=== PATIENT | female | born 1980 | race Caucasian/White ===

== ENCOUNTER 2016-11-08 14:46 | Outpatient (CLI) | payer MEDICAID ==
[2016-11-08 18:59] LABS: BASOPHILS # (AUTO) 0.1 10^3/uL (0.0-0.1); BASOPHILS % (AUTO) 1.8 %; EOSINOPHILS # (AUTO) 0.1 10^3/uL (0.0-0.7); EOSINOPHILS % (AUTO) 2.3 %; HCT - HEMATOCRIT 39.3 % (37.0-47.0); HGB - HEMOGLOBIN 13.2 g/dL (12.0-16.0); IMMATURE RETIC FRACTION 0.32; LYMPHOCYTES # (AUTO) 1.6 10^3/uL (1.5-3.5); LYMPHOCYTES % (AUTO) 39.5 %; MEAN CORPUSCULAR HEMOGLOBIN 28.6 pg (27.0-31.0); MEAN CORPUSCULAR HGB CONC 33.6 g/dL (32.0-36.0); MEAN CORPUSCULAR VOLUME 85.1 fL (81.0-99.0); MEAN PLATELET VOLUME 9.1 fL (7.9-10.8); MONOCYTES # (AUTO) 0.4 10^3/uL (0.0-1.0); MONOCYTES % (AUTO) 10.8 %; NEUTROPHILS # (AUTO) 1.9 10^3/uL (1.5-6.6); NEUTROPHILS % (AUTO) 45.6 %; RED BLOOD COUNT 4.62 10^6/uL (4.20-5.40); RED CELL DISTRIBUTION WIDTH 13.2 % (12.0-15.0); UNCORRECTED WHITE BLOOD COUNT 4.1 x10^3/uL; WHITE BLOOD COUNT 4.1 x10^3/uL (4.8-10.8)
[2016-11-08 19:17] LABS: ALBUMIN/GLOBULIN RATIO 1.6 (1.0-2.2); BILIRUBIN,TOTAL 0.8 mg/dL (0.2-1.0); BUN - BLOOD UREA NITROGEN 12 mg/dL (6-20); CALCIUM 9.3 mg/dL (8.5-10.3); CARBON DIOXIDE - CO2 27 mmol/L (21-32); CHLORIDE 104 mmol/L (101-111); CHOL/HDL RATIO 3.3 (<4.4); CHOLESTEROL 189 mg/dL; CREATININE 0.7 mg/dL (0.4-1.0); GFR - MDRD 96 (>89); GLUCOSE 82 mg/dL (70-100); HDL CHOLESTEROL 57 mg/dL; IRON 65 ug/dL (28-170); LDL/HDL RATIO 2.1 (<4.4); POTASSIUM 3.3 mmol/L (3.5-5.0); SODIUM 138 mmol/L (135-145); TOTAL IRON BINDING CAPACITY 434 ug/dL (250-450); TOTAL PROTEIN 7.4 g/dL (6.7-8.2); TRANSFERRIN 310 mg/dL (192-382); TRIGLYCERIDES 52 mg/dL; VLDL CHOLESTEROL 10 mg/dL
[2016-11-08 19:31] LABS: FERRITIN 11.3 ng/mL (11.0-306.8)
[2016-11-08 19:44] LABS: THYROID STIMULATING HORMONE 1.67 uIU/mL (0.34-5.60)
== END 2016-11-08 14:47 | disposition home or self-care (01) ==
LOC: LAB.N 14:46
PROVIDERS: ATTEND Physician Assistant
DX: R53.83 Other fatigue (principal)
CPT/HCPCS: 36415; 80053; 80061; 82607; 82728; 83540; 84443; 84466; 85025; 85044

== ENCOUNTER 2017-02-06 10:46 | Outpatient (CLI) | payer MEDICAID ==
--- NOTE | 2017-02-06 12:13 | XRAY Report ---
THREE-VIEW THORACIC SPINE: 02/06/2017 CLINICAL INDICATION: Back pain. FINDINGS: AP, lateral, swimmer's views of the thoracic spine demonstrate no evidence of fracture. N o paraspinal hematoma is present. The disk spaces are preserved. IMPRESSION: NORMAL THORACIC SPINE. JOB #: [id number] EXT JOB #:[id number]
--- NOTE | 2017-02-06 15:20 | XRAY Report ---
THREE-VIEW LUMBAR SPINE: 02/06/2017 CLINICAL INDICATION: Back pain. FINDINGS: AP, lateral, coned-down views of the lumbar spine demonstrate normal height and alignment of the vertebral bodies. The disk spaces are preserved. The bowel gas pattern is normal. IMPRESSION: NORMAL LUMBAR SPINE. JOB #: [id number] EXT JOB #:[id number]
== END 2017-02-06 10:47 | disposition home or self-care (01) ==
LOC: DI 10:46
PROVIDERS: ATTEND Nurse Practitioner Gerontology
DX: M54.5 Low back pain (principal)
CPT/HCPCS: 72072; 72100

== ENCOUNTER 2017-03-15 09:37 | Emergency (ER) | payer MEDICAID ==
[2017-03-15 10:06] LABS: BILIRUBIN,URINE NEGATIVE (NEGATIVE); PH,URINE 6.5 PH (5.0-7.5)
[2017-03-15 10:08] LABS: HCG UR QUAL NEGATIVE; UA w/ MICROSCOPIC CHARGE YES
[2017-03-15 10:41] LABS: UR CULTURE IF IND NOT INDICATED; WBC,URINE 0-3 /HPF (0-5)
[2017-03-15 11:37] VITALS: BP 111/76
--- NOTE | 2017-03-15 11:37 | ED Physician Documentation ---
History of Present Illness - Stated complaint Stated Complaint: FEMALE /??? - Chief complaint Chief Complaint: General - History obtained from History obtained from: Patient - Additonal information Additional information: The patient is a spontaneous Ab1 37-year-old female who presents with concern about the possibility of . 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 She has taken 2 home tests which which she states were "invalid." She denies abdominal pain, current vaginal bleeding, fever, dysuria, nausea, or vomiting. She is status post bilateral tubal ligation. 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 - Present Medications Home Medications: Ambulatory Orders Medication Instructions Recorded Confirmed No Known Home Medications [No 03/15/17 03/15/17 Known Home Medications] - Allergies Allergies/Adverse Reactions: Allergies Allergy/AdvReac Type Severity Reaction Status Date / Time cephalexin Allergy Rash Verified 03/15/17 09:44 - Social History Does the pt smoke?: No Smoking Status: Never smoker Does the pt drink ETOH?: No Does the pt have substance abuse?: No PD ED PE NORMAL - Vitals Vital signs reviewed: Yes (normal) - General General: Alert and oriented X 3, Well developed/nourished - HEENT HEENT: Atraumatic - Cardiac Cardiac: RRR - Respiratory Respiratory: No respiratory distress - Abdomen Abdomen: Soft, Non tender - Derm Derm: No rash - Extremities Extremities: No edema, No calf tenderness / cord - Neuro Neuro: Alert and oriented X 3, No motor deficit, Normal speech Results - Vitals Vitals: Oxygen O2 Source Room air - Labs Labs: Laboratory Tests 03/15/17 09:50 Urine Color YELLOW Urine Clarity HAZY Urine pH 6.5 Ur Specific [place] 1.015 Urine Protein NEGATIVE Urine Glucose (UA) NEGATIVE Urine Ketones NEGATIVE Urine Occult Blood NEGATIVE Urine Nitrite NEGATIVE Urine Bilirubin NEGATIVE Urine Urobilinogen 0.2 (NORMAL) Ur Leukocyte Esterase NEGATIVE Urine RBC 0-5 Urine WBC 0-3 Ur Squamous Epith Cells MANY Squamous H Amorphous Sediment Few Urine Bacteria Many H Ur Microscopic Review INDICATED Urine Culture Comments NOT INDICATED Urine HCG, Qual NEGATIVE PD MEDICAL DECISION MAKING - ED course Complexity details: reviewed results, considered differential, d/w patient ED course: The patient presents for test. Medical screening exam was performed. Urine test is negative. I discussed with her outpatient follow-up, as well as potentially worrisome signs or symptoms that should prompt reevaluation in the emergency department. Departure - Departure Disposition: 01 Home, Self Care Clinical Impression: test negative Condition: Stable Instructions: ED Screening Exam Medical Nonurgent Follow-Up: Nirali Botello MD [Provider Admit Priv/Credential] - Comments: Your test today was negative. Follow up with your primary physician for further concerns. Return to the interim if you develop worsening symptoms. Discharge Date/Time: 03/15/17 11:42
== END 2017-03-15 11:42 | disposition home or self-care (01) ==
LOC: ED 09:37
DX: Z32.02 Encounter for pregnancy test, result negative (principal); Z98.51 Tubal ligation status
CPT/HCPCS: 81001; 81003; 81025; 87086; 99283

== ENCOUNTER 2017-05-01 12:05 | Emergency (ER) | payer MEDICAID ==
[2017-05-01 12:37] LABS: BILIRUBIN,URINE NEGATIVE (NEGATIVE)
[2017-05-01 12:42] LABS: HCG UR QUAL POSITIVE; UA w/ MICROSCOPIC CHARGE YES
[2017-05-01 12:56] LABS: UR CULTURE IF IND NOT INDICATED; WBC,URINE 0-3 /HPF (0-5)
[2017-05-01 13:03] LABS: BASOPHILS % (AUTO) 0.6 %; EOSINOPHILS # (AUTO) 0.3 10^3/uL (0.0-0.7); EOSINOPHILS % (AUTO) 6.3 %; HGB - HEMOGLOBIN 14.3 g/dL (12.0-16.0); LYMPHOCYTES # (AUTO) 1.5 10^3/uL (1.5-3.5); LYMPHOCYTES % (AUTO) 35.7 %; MEAN CORPUSCULAR HEMOGLOBIN 29.3 pg (27.0-31.0); MEAN CORPUSCULAR HGB CONC 34.7 g/dL (32.0-36.0); MEAN CORPUSCULAR VOLUME 84.2 fL (81.0-99.0); MEAN PLATELET VOLUME 8.3 fL (7.9-10.8); MONOCYTES # (AUTO) 0.4 10^3/uL (0.0-1.0); MONOCYTES % (AUTO) 9.6 %; NEUTROPHILS % (AUTO) 47.8 %; RED BLOOD COUNT 4.87 10^6/uL (4.20-5.40); RED CELL DISTRIBUTION WIDTH 13.2 % (12.0-15.0); UNCORRECTED WHITE BLOOD COUNT 4.3 x10^3/uL; WHITE BLOOD COUNT 4.3 x10^3/uL (4.8-10.8)
[2017-05-01 13:17] LABS: ALBUMIN/GLOBULIN RATIO 1.4 (1.0-2.2); CALCIUM 9.4 mg/dL (8.5-10.3); CREATININE 0.7 mg/dL (0.4-1.0); POTASSIUM 3.5 mmol/L (3.5-5.0); TOTAL PROTEIN 7.8 g/dL (6.7-8.2)
[2017-05-01 14:00] LABS: INR 1.1 (0.8-1.2)
--- NOTE | 2017-05-01 14:32 | ED Physician Documentation ---
PD HPI FEMALE - Stated complaint Stated Complaint: HEAVY MENSES - Chief complaint Chief Complaint: Abd Pain - History obtained from History obtained from: Patient - History of Present Illness Timing - onset: Yesterday Timing - details: Gradual onset, Still present Associated symptoms: Vaginal bleeding Similar symptoms before: Has not had sx before Recently seen: Not recently seen - Additional information Additional information: Patient is a 37 year old female with no significant past medical history who is presenting to the emergency department for vaginal bleeding. patient stated that the bleeding started yesterday and she has soaked through three pairs of pants. patient state that she is sexually active but she had a tubal ligation. Review of Systems Constitutional: denies: Fever, Chills Eyes: denies: Decreased vision, Photophobia Ears: reports: Reviewed and negative Nose: denies: Epistaxis Throat: reports: Reviewed and negative Cardiac: denies: Chest pain / pressure, Palpitations Respiratory: reports: Reviewed and negative GI: denies: Abdominal Pain, Nausea, Vomiting : reports: Vaginal bleeding. 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 - Present Medications Home Medications: Ambulatory Orders Medication Instructions Recorded Confirmed No Known Home Medications [No 03/15/17 05/01/17 Known Home Medications] - Allergies Allergies/Adverse Reactions: Allergies Allergy/AdvReac Type Severity Reaction Status Date / Time cephalexin Allergy Rash Verified 05/01/17 12:15 - Social History Does the pt smoke?: No Smoking Status: Never smoker Does the pt drink ETOH?: No Does the pt have substance abuse?: No - Immunizations Immunizations are current?: Yes PD ED PE NORMAL - Vitals Vital signs reviewed: Yes - General General: Alert and oriented X 3, No acute distress, Well developed/nourished - HEENT HEENT: Atraumatic, PERRL, Moist mucous membranes - Neck Neck: Supple, no meningeal sign - Cardiac Cardiac: RRR, No murmur - Respiratory Respiratory: No respiratory distress, Clear bilaterally - Abdomen Abdomen: Soft, Non tender, Non distended - Derm Derm: Normal color, Warm and dry - Extremities Extremities: No deformity, Normal ROM s pain - Neuro Neuro: Alert and oriented X 3, No motor deficit, No sensory deficit, Normal speech - Psych Psych: Normal mood PD ED PE EXPANDED - Female Female : Vaginal Bleeding (moderate vaginal bleeding) Results - Vitals Vitals: Vital Signs - 24 hr 05/01/17 05/01/17 12:10 14:38 Temperature 37.2 C Heart Rate 84 79 Respiratory 18 17 Rate Blood Pressure 111/78 131/73 H O2 Saturation 99 99 Oxygen O2 Source Nasal cannula - Labs Labs: Laboratory Tests 05/01/17 05/01/17 05/01/17 12:20 12:55 12:55 WBC 4.3 L RBC 4.87 Hgb 14.3 Hct 41.0 MCV 84.2 MCH 29.3 MCHC 34.7 RDW 13.2 Plt Count 198 MPV 8.3 Neut # 2.0 Lymph # 1.5 Benzie # 0.4 Eos # 0.3 Baso # 0.0 Absolute Nucleated RBC 0.00 Nucleated RBC % 0.0 PT 12.0 INR 1.1 APTT 27.0 Sodium Potassium Chloride Carbon Dioxide Anion Gap BUN Creatinine Estimated GFR (MDRD) Glucose Calcium Total Bilirubin AST ALT Alkaline Phosphatase Total Protein Albumin Globulin Albumin/Globulin Ratio Lipase HCG, Quant Urine Color RED/BLOODY Urine Clarity HAZY Urine pH 7.0 Ur Specific [place] 1.015 Urine Protein NEGATIVE Urine Glucose (UA) NEGATIVE Urine Ketones NEGATIVE Urine Occult Blood LARGE H Urine Nitrite NEGATIVE Urine Bilirubin NEGATIVE Urine Urobilinogen 0.2 (NORMAL) Ur Leukocyte Esterase NEGATIVE Urine RBC TNTC H Urine WBC 0-3 Ur Squamous Epith Cells MOD Squamous H Urine Bacteria Rare Ur Microscopic Review INDICATED Urine Culture Comments NOT INDICATED Urine HCG, Qual POSITIVE 05/01/17 05/01/17 12:55 12:55 WBC RBC Hgb Hct MCV MCH MCHC RDW Plt Count MPV Neut # Lymph # Benzie # Eos # Baso # Absolute Nucleated RBC Nucleated RBC % PT INR APTT Sodium 137 Potassium 3.5 Chloride 102 Carbon Dioxide 28 Anion Gap 7.0 BUN 9 Creatinine 0.7 Estimated GFR (MDRD) 95 Glucose 89 Calcium 9.4 Total Bilirubin 1.0 AST 24 ALT 18 Alkaline Phosphatase 41 L Total Protein 7.8 Albumin 4.5 Globulin 3.3 Albumin/Globulin Ratio 1.4 Lipase 16 L HCG, Quant < 0.60 Urine Color Urine Clarity Urine pH Ur Specific [place] Urine Protein Urine Glucose (UA) Urine Ketones Urine Occult Blood Urine Nitrite Urine Bilirubin Urine Urobilinogen Ur Leukocyte Esterase Urine RBC Urine WBC Ur Squamous Epith Cells Urine Bacteria Ur Microscopic Review Urine Culture Comments Urine HCG, Qual - Rads (name of study) pelvic ultrasound Radiology: Final report received (no intrauterine or extrauterine ) PD MEDICAL DECISION MAKING - ED course Complexity details: reviewed old records, reviewed results, re-evaluated patient , considered differential, d/w patient ED course: Patient was seen and examined at bedside. Labs were drawn and urine was collected. Patient's urinalysis was positive for urine so ultrasound was ordered, as well as additional blood work. Patient's beta quant was negative and ultrasound was within normal limits. Patient was made aware of her findings and was stable for discharge with outpatient follow up. Departure - Departure Disposition: 01 Home, Self Care Clinical Impression: Dysfunctional uterine bleeding Condition: Good Instructions: ED Bleed Irregular Vaginal Follow-Up: Tuyet Jones DO [Provider Admit Priv/Credential] - Comments: Your diagnostics today were within normal limits. Your urine test was positive but the blood test was negative and the ultrasound was within normal limits. You may have had a miscarriage or it was a false positive test. You should follow up with Dr. Jones's office for further evaluation if the symptoms persist. You may return to the emergency department at any time for new, worsening or uncontrollable symptoms. Discharge Date/Time: 05/01/17 14:43
[2017-05-01 14:44] VITALS: BP 131/73
--- NOTE | 2017-05-03 12:12 | Ultrasound Report ---
DATE OF SERVICE: 05/01/2017 FIRST TRIMESTER OB ULTRASOUND WITH TRANSVAGINAL: 05/01/2017 CLINICAL INDICATION: , vaginal bleeding. History of tubal ligation. TECHNIQUE: Transabdominal pelvic ultrasound performed for global evaluation. Transvaginal pelvic ul trasound performed for detailed evaluation. Real-time scanning performed and static images obtained. FINDINGS: The uterus is anteverted, measuring 8.3 x 5.0 x 5.5 cm. The endometrium measures 5 mm. N o intrauterine or extrauterine gestation is identified. The ovaries are normal, with the right measuri ng 3.6 x 2.8 x 1.4 cm, and the left measuring 3.1 x 2.2 x 1.4 cm. A small amount of free fluid is noted in th e cul-de-sac, likely physiologic in a patient of this age. IMPRESSION: Trace free fluid. Otherwise, normal pelvic ultrasound. No intrauterine or extrauterine gestation is identified. Recommend followup serial quantitative beta hCG. TD: 05/01/2017 20:41
== END 2017-05-01 14:43 | disposition home or self-care (01) ==
LOC: ED 12:05
DX: N93.8 Other specified abnormal uterine and vaginal bleeding (principal)
CPT/HCPCS: 36415; 76801; 76817; 80053; 81001; 81003; 81025; 83690; 84702; 85025; 85610; 85730; 86900; 86901; 87086; 99283

== ENCOUNTER 2017-05-15 15:16 | Outpatient (CLI) | payer MEDICAID | END 2017-05-15 15:17 | disposition home or self-care (01) | LOC: LAB 15:16 | PROVIDERS: ATTEND Obstetrics & Gynecology | DX: Z32.00 Encounter for pregnancy test, result unknown (principal) | CPT/HCPCS: 84702 ==

== ENCOUNTER 2017-10-25 09:43 | Emergency (ER) | payer MEDICAID ==
--- NOTE | 2017-10-25 11:51 | XRAY Report ---
Procedure Date: 10/25/2017 Accession Number: [id number] / [id number] Procedure: XR - Chest 2 View X-Ray CPT Code: 53277 FULL RESULT: EXAM: CHEST RADIOGRAPHY, 2 VIEWS EXAM DATE: 10/25/2017 11:26 AM. CLINICAL HISTORY: 37-year-old female with cough and shortness of breath for 5 days. COMPARISON: None. TECHNIQUE: Upright PA and lateral views. FINDINGS: Lungs/Pleura: No focal opacities evident. No pleural effusion. No pneumothorax. Normal volumes. Mediastinum: Heart and mediastinal contours are unremarkable. No adenopathy or pulmonary vascular congestion. Other: Trachea is midline. Osseous structures are unremarkable. IMPRESSION: Normal chest for age and body size. No pneumonia, CHF or other demonstrated cause for the patient's symptoms. RADIA
--- NOTE | 2017-10-25 12:08 | ED Physician Documentation ---
PD HPI URI - Stated complaint Stated Complaint: FEVER/DIARRHEA - Chief complaint Chief Complaint: General - History obtained from History obtained from: Patient - History of Present Illness Timing - onset: How many days ago (4-5) Timing duration: Days (4-5) Timing details: Gradual onset, Still present, Still present in ED Associated symptoms: Fever, Chills, Nasal congestion, Sore throat, Productive cough, NVD Contributing factors: Sick contact (daughter with pneumonia last week; Rx with abx and cough med.) Similar symptoms before: Has not had sx before Recently seen: Not recently seen Review of Systems Constitutional: reports: Fever, Chills, Myalgias, Fatigue Nose: reports: Congestion. denies: Rhinorrhea / runny nose Throat: denies: Sore throat Respiratory: reports: Cough GI: reports: Nausea, Diarrhea. 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 - Present Medications Home Medications: Ambulatory Orders Medication Instructions Recorded Confirmed Albuterol Sulf [Ventolin Hfa 1 - 2 puffs INH Q4HR PRN #1 inhaler 10/25/17 Inhaler] Benzonatate [Tessalon] 100 mg PO TID PRN #25 capsule 10/25/17 Dexamethasone [Decadron] 4 mg PO DAILY #5 tablet 10/25/17 Doxycycline Monohydrate 100 mg PO BID #14 tablet 10/25/17 - Allergies Allergies/Adverse Reactions: Allergies Allergy/AdvReac Type Severity Reaction Status Date / Time cephalexin Allergy Rash Verified 10/25/17 10:03 - Social History Does the pt smoke?: No Smoking Status: Never smoker Does the pt drink ETOH?: No Does the pt have substance abuse?: No - Immunizations Immunizations are current?: No Immunizations: TDAP >10years/unknown, Other immun current PD ED PE NORMAL - Vitals Vital signs reviewed: Yes - General General: Alert and oriented X 3, Well developed/nourished - HEENT HEENT: Ears normal, Moist mucous membranes, Pharynx benign - Neck Neck: Supple, no meningeal sign, No adenopathy - Cardiac Cardiac: RRR, No murmur - Respiratory Respiratory: Clear bilaterally - Abdomen Abdomen: Soft, Non tender, Non distended, No organomegaly - Derm Derm: Normal color, Warm and dry - Extremities Extremities: No tenderness to palpate, Normal ROM s pain, No edema, No calf tenderness / cord - Neuro Neuro: Alert and oriented X 3, No motor deficit, Normal speech - Psych Psych: Normal mood Results - Vitals Vitals: Oxygen O2 Source Room air - Rads (name of study) chest xray Radiology: Prelim report reviewed (no acute process; normal), EMP read contemporaneously PD MEDICAL DECISION MAKING - ED course Complexity details: considered differential, d/w patient - Sepsis Event Vital Signs: Oxygen O2 Source Room air Departure - Departure Disposition: Home, Self Care Clinical Impression: Upper respiratory infection Qualifiers: URI type: unspecified URI Qualified Code(s): J06.9 - Acute upper respiratory infection, unspecified Condition: Stable Record reviewed to determine appropriate education?: Yes Instructions: ED Upper Resp Infec Abx Tx Follow-Up: Roxy Arzate ARNP [Primary Care Provider] - Prescriptions: Albuterol Sulf [Ventolin Hfa Inhaler] 1 - 2 puffs INH Q4HR PRN #1 inhaler PRN Reason: Shortness Of Air/Wheezing Benzonatate [Tessalon] 100 mg PO TID PRN #25 capsule PRN Reason: Cough Dexamethasone [Decadron] 4 mg PO DAILY #5 tablet Doxycycline Monohydrate 100 mg PO BID #14 tablet Comments: These most commonly are viral illnesses. However that can be some bacterial component especially with some history of asthma and her daughter having had pneumonia. Your chest x-ray appears normal without pneumonia at this time. We will treat this with an inhaler 2 puffs 4 times a day and extra times as needed for wheezing and this will help the cough and breathing quite a bit. Decadron steroid daily for 5 more days to help the inflammation of the airways. Add Tessalon if needed for cough. Doxycycline twice a day for a week for potential bacterial and involvement. Recheck if not improving over the next several days to week. Discharge Date/Time: 10/25/17 12:31
[2017-10-25] MEDS ORDERED: BENZONATATE 100 MG CAPSULE PO STA (12:17)
[2017-10-25] MEDS ORDERED: DEXAMETHASONE 10 MG/ML VIAL PO STA (12:17)
[2017-10-25 12:36] VITALS: BP 111/71
[2017-10-25] MEDS ORDERED: CHERRY SYRUP 10 ML UDC PO ONE (12:37)
== END 2017-10-25 12:31 | disposition home or self-care (01) ==
LOC: ED 09:43
DX: J06.9 Acute upper respiratory infection, unspecified (principal)
CPT/HCPCS: 71046; 99283; A9270

== ENCOUNTER 2018-04-16 17:16 | Outpatient (CLI) | payer MEDICAID | END 2018-04-16 17:17 | disposition EMS.NT | LOC: EMS 17:16 | PROVIDERS: ATTEND Surgery | DX: J34.89 Other specified disorders of nose and nasal sinuses (principal); V49.40XA Driver injured in collision with unspecified motor vehicles in traffic accident, initial encounter; Y92.413 State road as the place of occurrence of the external cause ==

== ENCOUNTER 2018-06-28 09:56 | Emergency (ER) | payer MEDICAID ==
[2018-06-28] MEDS ORDERED: IBUPROFEN 800 MG TABLET PO STA (10:47)
--- NOTE | 2018-06-28 10:49 | ED Physician Documentation ---
PD HPI HEENT - Stated complaint Stated Complaint: THROAT PX - Chief complaint Chief Complaint: Heent - History obtained from History obtained from: Patient - History of Present Illness Timing - onset: How many days ago (3) Timing - duration: Days (3) Timing - details: Still present Location: Throat Associated symptoms: Fever, Congestion, Headache, Cough - Additional information Additional information: The patient is a 38-year-old female who presents with sore throat and cough of 3 days duration. She also reports congestion, shortness of breath, and headache. She has felt chilled. She denies myalgias, nausea or vomiting. She does not smoke cigarettes. She got a flu vaccination earlier this season. Review of Systems Constitutional: reports: Chills, Fatigue Eyes: denies: Irritation Ears: denies: Ear pain Nose: reports: Congestion Throat: reports: Sore throat Cardiac: denies: Chest pain / pressure Respiratory: reports: Dyspnea, Cough GI: denies: Abdominal Pain, Nausea, Vomiting : denies: Dysuria Skin: denies: Rash Musculoskeletal: denies: Back pain, Extremity pain Neurologic: reports: Headache. 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 - Present Medications Home Medications: Ambulatory Orders Medication Instructions Recorded Confirmed Albuterol Sulf [Ventolin Hfa 1 - 2 puffs INH Q4HR PRN #1 inhaler 10/25/17 Inhaler] Benzonatate [Tessalon] 100 mg PO TID PRN #25 capsule 10/25/17 Dexamethasone [Decadron] 4 mg PO DAILY #5 tablet 10/25/17 Doxycycline Monohydrate 100 mg PO BID #14 tablet 10/25/17 Benzonatate [Tessalon Perle] 100 - 200 mg PO TID PRN #30 capsule 06/28/18 - Allergies Allergies/Adverse Reactions: Allergies Allergy/AdvReac Type Severity Reaction Status Date / Time cephalexin Allergy Rash Verified 06/28/18 10:09 - Social History Does the pt smoke?: No Smoking Status: Never smoker Does the pt drink ETOH?: No Does the pt have substance abuse?: No - Immunizations Immunizations are current?: No Immunizations: TDAP >10years/unknown, Other immun current PD ED PE NORMAL - Vitals Vital signs reviewed: Yes (normal) - General General: Alert and oriented X 3, Well developed/nourished - HEENT HEENT: Atraumatic, EOMI, Ears normal, Other (Oropharynx is diffusely erythematous, without tonsillar exudates or peritonsillar swelling.) - Neck Neck: Supple, no meningeal sign, Other (Mildly enlarged anterior cervical nodes bilaterally.) - Cardiac Cardiac: RRR - Respiratory Respiratory: No respiratory distress, Clear bilaterally - Abdomen Abdomen: Soft, Non tender - Back Back: No CVA TTP - Derm Derm: No rash - Extremities Extremities: No edema, No calf tenderness / cord - Neuro Neuro: Alert and oriented X 3, No motor deficit, Normal speech Results - Vitals Vitals: Oxygen O2 Source Room air - Labs Labs: Microbiology 06/28/18 10:07 Group A Strep Throat Culture - Preliminary Throat CULTURE IN PROGRESS. RESULTS TO FOLLOW. Laboratory Tests 06/28/18 10:07 Group A Strep Rapid Negative PD MEDICAL DECISION MAKING - ED course Complexity details: reviewed results, re-evaluated patient, considered differential, d/w patient ED course: The patient's presentation is most consistent with viral upper respiratory infection. Her clinical presentation does not suggest meningitis, pneumonitis, otitis media, or acute pharyngitis. Rapid strep screen is negative. Treatment in the emergency department included administration of ibuprofen 800 mg orally. I discussed with her the expected course of illness, symptomatic treatment and outpatient follow-up, as well as potentially worrisome signs or symptoms that should prompt reevaluation in the emergency department. Departure - Departure Disposition: 01 Home, Self Care Clinical Impression: Viral URI with cough Condition: Stable Instructions: ED Upper Resp Infec No Abx Tx Follow-Up: [facility] [Provider Group] Prescriptions: Benzonatate [Tessalon [place]] 100 - 200 mg PO TID PRN #30 capsule PRN Reason: Cough Comments: Your symptoms are most consistent with a viral upper respiratory infection. Antibiotics are not clinically indicated for this type of viral infection. Treatment should be geared toward managing symptoms: Drink plenty of fluids. Use Tylenol or ibuprofen as needed for fever or discomfort. Take Tessalon as prescribed if needed for cough. Wash your hands frequently, and cover your cough. Follow up with your primary physician, or return to the emergency department, if not improving within 1-2 weeks. Return to the emergency department if you develop increasing difficulty breathing, or otherwise worsening symptoms. Discharge Date/Time: 06/28/18 11:21
[2018-06-28 11:22] VITALS: BP 118/76
== END 2018-06-28 11:21 | disposition home or self-care (01) ==
LOC: ED 09:56
DX: J06.9 Acute upper respiratory infection, unspecified (principal); B97.89 Other viral agents as the cause of diseases classified elsewhere
CPT/HCPCS: 87070; 87430; 99283; A9270

== ENCOUNTER 2018-09-23 15:06 | Outpatient (CLI) | payer MEDICAID ==
[2018-09-23 15:48] LABS: HGB - HEMOGLOBIN 12.4 g/dL (12.0-16.0); MEAN CORPUSCULAR HGB CONC 33.5 g/dL (32.0-36.0); MEAN CORPUSCULAR VOLUME 83.7 fL (81.0-99.0); MEAN PLATELET VOLUME 8.7 fL (7.9-10.8); RED BLOOD COUNT 4.43 10^6/uL (4.20-5.40); WHITE BLOOD COUNT 4.8 x10^3/uL (4.8-10.8)
[2018-09-24 00:13] LABS: TRICHOMONAS VAGINALIS DNA NEGATIVE (NEGATIVE)
[2018-09-24 12:58] LABS: HEPATITIS B SURFACE ANTIGEN NON-REACTIVE (NON-REACTIVE); HEPATITIS C ANTIBODY NON-REACTIVE (NON-REACTIVE)
[2018-09-24 13:36] LABS: HIV AG/AB 4TH GEN NON-REACTIVE (NON-REACTIVE)
== END 2018-09-23 15:07 | disposition home or self-care (01) ==
LOC: LAB 15:06
PROVIDERS: ATTEND Obstetrics & Gynecology
DX: N93.9 Abnormal uterine and vaginal bleeding, unspecified (principal); Z11.3 Encounter for screening for infections with a predominantly sexual mode of transmission
CPT/HCPCS: 36415; 81599; 84443; 85027; 86592; 86803; 87340; 87389; 87491; 87591; 87661

== ENCOUNTER 2018-10-03 11:02 | Outpatient (CLI) | payer MEDICAID ==
--- NOTE | 2018-10-03 17:23 | Ultrasound Report ---
Reason: ABNORMAL UTERINE BLEEDING,DYSMENORRHEA Procedure Date: 10/03/2018 Accession Number: [id number] / [id number] Procedure: US - Pelvic w/Transvaginal CPT Code: FULL RESULT: EXAM: PELVIC ULTRASOUND EXAM DATE: 10/03/2018 12:12 PM. CLINICAL HISTORY: ABNORMAL UTERINE BLEEDING,DYSMENORRHEA. LMP 09/25/2018 COMPARISON: None. TECHNIQUE: Realtime transabdominal pelvic scan performed to identify the uterus and adnexa and as an overview of other pelvic structures, followed by transvaginal scan to provide greater detail of the uterus and adnexa, with static image documentation. FINDINGS: Uterus: 9.2 x 4.5 x 5.6 cm, volume 121 cc. Anteverted position. Normal overall size and echotexture. Masses: None. Endometrium: Thin . Avascular echogenic focus within the endometrial canal 1 x 0.5 x 0.6 cm, possible polyp. Cervix: Unremarkable. Right Ovary: 3.1 x 1.6 x 2.3 cm, volume 5.9 cc. Normal echotexture and blood flow. Left Ovary: 6 x 1.6 x 2 cm, volume 10 cc. Normal echotexture and blood flow. 1.6 x 1.6 x 1.8 cm cyst Free Fluid: Small amount Other: None. IMPRESSION: Avascular echogenic focus within the endometrium 1 x 0.5 x 0.6 cm, question polyp. Otherwise negative pelvic ultrasound. RADIA
== END 2018-10-03 11:03 | disposition home or self-care (01) ==
LOC: DI 11:02
PROVIDERS: ATTEND Obstetrics & Gynecology
DX: N93.9 Abnormal uterine and vaginal bleeding, unspecified (principal); N94.6 Dysmenorrhea, unspecified
CPT/HCPCS: 76830; 76856

== ENCOUNTER 2018-11-20 10:52 | Day surgery (SDC) | payer MEDICAID ==
[2018-11-20] MEDS ORDERED: LACTATED RINGERS 1,000 ML IV ONE ×2 (11:11→14:45)
--- NOTE | 2018-11-20 13:20 | ANESTHESIA ---
Pre-Anesthesia VS, & Labs - Diagnosis endometrial polyp, pelvic pain, menorrhagia, DUB - Procedure diagnostic laparoscopy, hysterscopy/polypectomy Vital Signs: Temp Pulse Resp BP Pulse Ox 36.2 C L 66 16 117/78 100 11/20/18 11:16 11/20/18 11:16 11/20/18 11:16 11/20/18 11:16 11/20/18 11:16 Height 5 ft 2 in Weight (kg) 57 kg Body Mass Index 21.4 - NPO >8 hours - Is Patient ?: No (history of tubal ligation) Home Medications and Allergies Home Medications: Ambulatory Orders Diclofenac Sodium 50 mg PO TID PRN 11/15/18 Diclofenac Sodium 50 mg PO TID PRN 11/15/18 Allergies/Adverse Reactions: Allergies Allergy/AdvReac Type Severity Reaction Status Date / Time cephalexin Allergy Rash Verified 06/28/18 10:09 Anes History & Medical History - Anesthetic History Anesthesia Complications: reports: No previous complications - Medical History Cardiovascular: reports: None Pulmonary: reports: None Gastrointestinal: reports: None Urinary: reports: None Neuro: reports: None Musculoskeletal: reports: None Endocrine/Autoimmune: reports: None Blood Disorders: reports: None Skin: reports: None Smoking Status: Never smoker Psychosocial: reports: No issues indicated - Surgical History Cardiothoracic: Other (fatemeh. leg vein stripping) Gynecologic: Tubal ligation Exam General: Alert, Oriented x3, Cooperative, No acute distress Dental: WNL Mouth Openin Fingerbreadth Neck Mobility: Normal Mallampati classification: II Thyromental Distance: 4-6 cm Respiratory: Lungs clear, Normal breath sounds, No respiratory distress, No accessory muscle use Cardiovascular: Regular rate, Normal S1, Normal S2, No murmurs Mental/Cognitive Status: Alert/Oriented X3, Normal for patient Plan Anesthesia Type: General Consent for Procedure(s) Verified and Reviewed: Yes Code Status: Attempt Resuscitation ASA classification: 1-Healthy patient Is this case an emergency?: No
--- NOTE | 2018-11-20 14:06 | SURGERY HX AND PHYSICAL(T) ---
Surgical History & Physical - Chief Complaint/HPI Chief Complaint: heavy menstrual bleeding and abdominal/pelvic pain History of Present Illness: Ms Ha presents today for preop evaluation for hysteroscopy D&C with possible polypectomy and diagnostic laparoscopy with possible ablation of endometriosis and possible oophorectomy/cystectomy/salpingectomy. She has been seen in clinic multiple times since first presentation on 10/02/18. She reports heavy menstrual bleeding and abdominal/pelvic pain, felt mainly on the right. She has been treated with mefenamic acid and diclofenac. About 2-3 weeks ago she also received DMPA. She has not had menses since and cannot comment on change in flow. Otherwise, no change in health hx since time of prior exam. Has has a pelvic us that showed a thin EMS with possible polyp, otherwise unremarkable. EMB with benign pathology. Negative STD screen. Has had a tubal ligation. 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 leg vein stripping) Smoking Status: Never smoker Does the pt drink ETOH?: No Does the pt have substance abuse?: No Substance Use and Type: Marijuana - Home Meds and Allergies Home Medications: Diclofenac Sodium 50 mg PO TID PRN 11/15/18 Allergies/Adverse Reactions: Allergies Allergy/AdvReac Type Severity Reaction Status Date / Time cephalexin Allergy Rash Verified 06/28/18 10:09 - Vital Signs Heart Rate: 66 Blood Pressure: 117/78 Temperature: 97.2 F Respiratory Rate: 16 O2 Saturation: 100 Weight (kg): 57 kg Height: 5 ft 2 in - Physical Exam General Appearance: positive: Other (Physical Constitutional alert, no acute distress Skin normal turgor, normal color Head atraumatic, normocephalic Neck supple, no adenopathy Cardiovascular RRR, no murmurs Respiratory no respiratory distress, clear to auscultation Abdomen nondistended, nontender Neurologic normal Psych affect and mood appropriate, normal interaction Vulva See 10/07/18 exam. Unremarkable. Sounded to 8 cm.) - Patient Review Patient Review: Problems were reviewed with the patient during this visit. Medications were reviewed with the patient during this visit. Allergies were reviewed this patient during this visit. Pertinent Tests Reviewed: All pertitent test for this patient were reviewed. - Assessment & Plan Assessment and Plan: Ms Ha presents for pre-op evaluation for hysteroscopy D&C/polypectomy and diagnostic laparoscopy with possible ablation of endometriosis/oophorectomy/salpingectomy. Risks/benefits/alternatives reviewed. Risks of bleeding, infection, and damage to nearby tissue and organs reviewed as well as risks intrinsic to each procedure. Written consent was obtained. Orders submitted OR on 11/20/18 No change in health hx since time of prior exam. 11/20/18 14:06
[2018-11-20] MEDS ORDERED: LIDOCAINE 1%-EPI 1:100000 20 ML MDV ONE (14:35)
[2018-11-20] MEDS ORDERED: SILVER NITRATE APPLICATOR TOP ONE (15:25)
[2018-11-20] MEDS ORDERED: NEOSTIGMINE 1 MG/1 ML 10 ML MDV IVP ONE (15:30)
[2018-11-20] MEDS ORDERED: PROPOFOL 200 MG/20 ML VIAL IVP ONE (15:30)
[2018-11-20] MEDS ORDERED: MIDAZOLAM 2 MG/2 ML VIAL IVP ONE (15:30)
[2018-11-20] MEDS ORDERED: DEXAMETHASONE 4 MG/ML VIAL IVP ONE (15:30)
[2018-11-20] MEDS ORDERED: ROCURONIUM 50 MG/5 ML VIAL IVP ONE (15:30)
[2018-11-20] MEDS ORDERED: GLYCOPYRROLATE 1 MG/5 ML VIAL IVP ONE (15:30)
[2018-11-20] MEDS ORDERED: fentaNYL 100 MCG/2 ML VIAL IVP ONE (15:30)
[2018-11-20] MEDS ORDERED: KETOROLAC 30 MG/ML VIAL IVP ONE (15:30)
--- NOTE | 2018-11-20 15:39 | OPERATIVE REPORT ---
Operative Report - General Procedure Date: 11/20/18 Planned Procedure: Diagnostic laparoscopy and hysteroscopy D&C Pre-Op Diagnosis: Dysfunctional uterine bleeding, thickened endometrium, pelvic pain Procedure Performed: Diagnostic laparoscopy and hysteroscopy D&C Post Op Diagnosis: Same and likely adenomyosis - Procedure Note Primary Surgeon: Nkechi Oates MD Anesthesia Provider: Rhiannon Martinez CRNA Anesthesia Technique: General ET tube Pathology: Endometrial curettings Estimated Blood Loss (mL): 10 Urine Output (mL): 20 (in and out catheterization) Indications: Dysfunctional uterine bleeding and chronic pelvic pain unresponsive to medical management Findings: Laparoscopic exploration of the pelvis and abdomen showed injected appearing tissue with minor amount of adhesions around right tube and ovary. No ovarian cysts or significant endometriosis. Boggy, moderately enlarged uterus. S/p tubal ligation. Normal appearing ovaries. On hysteroscopic exam, thick, polypoid tissue was noted in the endometrial cavity. Tubal ostia identified bilaterally. Complications: none - Other Other Information/Narrative: Consent was reconfirmed. The patient was taken to the operating room where she was properly prepped and draped in sterile manner under general anesthesia. The patient was prepped and draped in the dorsal lithotomy position. Bimanual examination revealed the uterus to be anteverted and slightly enlarged with no adnexal masses palpable. In and out bladder catheterization was performed. The patient was prepped and draped in the usual sterile fashion. SCDs were confirmed to be in palce and operating. A bivalve vaginal speculum was placed into the vaginal canal and a single-tooth tenaculum was used to grasp the anterior cervix. A Thurman cannula was introduced for laparoscopic manipulation. The patients bladder was decompressed with in and out catheterization. Antibiotics were not indicated. Attention was then focused on the abdomen, where a vertical skin incision was made through the patients umbilicus. A 5 mm Visiport trocar was used to enter the peritoneal cavity under direct visualization. The abdomen was insufflated to 15 mmHg. Operative findings showed no hemoperitoneum. or tissue injury secondary to port placement. Exploration of the abdomen and pelvis was performed with findings n oted above. The was no indication for further operative intervention. The abdomen was desufflated. The trocar was removed. The umbilical incision was closed with running subcuticular suture using 4-0 Monocryl followed with Dermabond. A total of 5 cc of 1% lidocaine with epinephrine was injected prior to trocar placement and following the procedure. Attention was then turned to the hysteroscopic portion of the procedure. The Thurman cannula was removed. The cervix was again exposed with a bivalve speculum and the anterior lip of the cervix grasped with a tenaculum. The uterus was sounded to a depth of 8 cm. The endocervical canal was then progressively dilated with Hegar dilators to accommodate the diagnostic hysteroscope. The hysteroscope was then introduced into the uterine cavity using sterile saline solution as a distending media. The endometrial cavity was distended with fluids and the cavity visualized. . The fundus were visualized bilaterally with corresponding tubal ostia. A moderate amount of proliferative appearing, polypoid, endometrium was noted. The hysteroscope was removed. Sharp curettage was performed. The hysteroscope was reinsterted and the cavity was devoid of extraneous polypoid tissue. All instruments were removed from the vagina. Good hemostasis had been obtained at tenaculum sites with silver nitrate The patient tolerated the procedure well. The patient was sent to recovery area in satisfactory postoperative condition. Fluid deficit 75 cc
[2018-11-20] MEDS ORDERED: ACETAMINOPHEN 1,000 MG/100 ML 100 ML IV ONE (15:57)
[2018-11-20] MEDS ORDERED: HYDROmorphone 0.5 MG/0.5 ML SYRINGE ONE (15:58)
[2018-11-20 18:14] VITALS: BP 112/62
== END 2018-11-20 10:53 | disposition home or self-care (01) ==
LOC: SDS 10:52
PROVIDERS: ATTEND Obstetrics & Gynecology
PROC: 0UJD8ZZ Inspection of Uterus and Cervix, Via Natural or Artificial Opening Endoscopic (ICD-10-PCS; 2018-11-20)
PROC: 0WJJ4ZZ Inspection of Pelvic Cavity, Percutaneous Endoscopic Approach (ICD-10-PCS; principal; 2018-11-20 14:15)
PROC: 0UDB7ZZ Extraction of Endometrium, Via Natural or Artificial Opening (ICD-10-PCS; 2018-11-20 14:15)
DX: N93.8 Other specified abnormal uterine and vaginal bleeding (principal); R10.2 Pelvic and perineal pain; N92.0 Excessive and frequent menstruation with regular cycle; N84.0 Polyp of corpus uteri; R93.89 Abnormal findings on diagnostic imaging of other specified body structures
CPT/HCPCS: 49320; 58558; J0131; J1170; J7120

== ENCOUNTER 2019-05-21 15:06 | Emergency (ER) | payer MEDICAID ==
[2019-05-21 15:22] VITALS: BP 127/83
--- NOTE | 2019-05-21 15:54 | ED Physician Documentation ---
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 leg vein stripping) - Present Medications Home Medications: Ambulatory Orders Medication Instructions Recorded Confirmed Diclofenac Sodium 50 mg PO TID PRN 11/15/18 11/20/18 - Allergies Allergies/Adverse Reactions: Allergies Allergy/AdvReac Type Severity Reaction Status Date / Time cephalexin Allergy Rash Verified 06/28/18 10:09 - Social History Does the pt smoke?: No Smoking Status: Never smoker Does the pt drink ETOH?: No Does the pt have substance abuse?: No - Immunizations Immunizations are current?: No Immunizations: TDAP >10years/unknown, Other immun current Results - Vitals Vitals: Vital Signs - 24 hr 05/21/19 15:08 Temperature 36.7 C Heart Rate 82 Respiratory 18 Rate Blood Pressure 127/83 H O2 Saturation 99 Oxygen O2 Source Room air
--- NOTE | 2019-05-21 16:05 | ED Physician Documentation ---
PD HPI CHEST PAIN - Stated complaint Stated Complaint: CP - Chief complaint Chief Complaint: Cardiac - History obtained from History obtained from: Patient (For the last 3 months she has had intermittent chest pain. Its not necessarily exertional. It is generally on the left side, and lasts minutes at a time. Is a fairly rare phenomenon. She is not been short of breath. No calf pain or pedal edema. She is on Depo-Provera. No recent tr willian. No history of heart or lung disease. She had an episode a few days ago and ever since that her right arm feels heavy. She is not currently having any chest pain.) Review of Systems Constitutional: denies: Fever, Chills Cardiac: reports: Chest pain / pressure. 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 leg vein stripping) - Present Medications Home Medications: Ambulatory Orders Medication Instructions Recorded Confirmed Diclofenac Sodium 50 mg PO TID PRN 11/15/18 11/20/18 - Allergies Allergies/Adverse Reactions: Allergies Allergy/AdvReac Type Severity Reaction Status Date / Time cephalexin Allergy Rash Verified 06/28/18 10:09 - Social History Does the pt smoke?: No Smoking Status: Never smoker Does the pt drink ETOH?: No Does the pt have substance abuse?: No - Immunizations Immunizations are current?: No Immunizations: TDAP >10years/unknown, Other immun current PD ED PE NORMAL - Vitals Vital signs reviewed: Yes - General General: Alert and oriented X 3, No acute distress - HEENT HEENT: PERRL, EOMI - Neck Neck: Supple, no meningeal sign, No bony TTP - Cardiac Cardiac: RRR, No murmur - Respiratory Respiratory: No respiratory distress, Clear bilaterally - Abdomen Abdomen: Normal bowel sounds, Soft, Non tender - Back Back: No CVA TTP, No spinal TTP - Extremities Extremities: Other (Equal radial pulses bilaterally, normal range of motion of the right arm, normal and symmetric sensation of both arms. No neck tenderness.) - Neuro Neuro: Alert and oriented X 3, Normal speech Results - Vitals Vitals: Vital Signs - 24 hr 05/21/19 15:08 Temperature 36.7 C Heart Rate 82 Respiratory 18 Rate Blood Pressure 127/83 H O2 Saturation 99 Oxygen O2 Source Room air - EKG (time done) 1513 Rate: Rate (enter#) (79) Rhythm: NSR [place]: Normal Intervals: Normal GA QRS: Normal Ischemia: Non specific changes. No: ST elevation c/w ischemia, ST depression Computer interpretation: Agree with computer - Labs Labs: Laboratory Tests 05/21/19 05/21/19 05/21/19 16:24 16:24 16:24 WBC 4.9 RBC 4.95 Hgb 14.2 Hct 41.7 MCV 84.2 MCH 28.7 MCHC 34.1 RDW 12.6 Plt Count 221 MPV 10.5 Neut # (Auto) 3.0 Lymph # (Auto) 1.4 L [place] # (Auto) 0.5 Eos # (Auto) 0.1 Baso # (Auto) 0.1 Absolute Nucleated RBC 0.00 Nucleated RBC % 0.0 Sodium 139 Potassium 3.7 Chloride 107 Carbon Dioxide 23 Anion Gap 9.0 BUN 11 Creatinine 0.8 Estimated GFR (MDRD) 81 L Glucose 112 H Calcium 9.6 Total Bilirubin 1.3 H AST 28 ALT 28 Alkaline Phosphatase 41 L Troponin I High Sens < 2.3 L Total Protein 7.6 Albumin 4.4 Globulin 3.2 Albumin/Globulin Ratio 1.4 Lipase 31 - Rads (name of study) 1v cxr Radiology: EMP read contemporaneously (NAD) PD MEDICAL DECISION MAKING - ED course ED course: 39-year-old woman with atypical and fleeting episodic chest pain. Her work-up here was negative, primary care follow-up was advised. Departure - Departure Disposition: 01 Home, Self Care Clinical Impression: Atypical chest pain Condition: Good Record reviewed to determine appropriate education?: Yes Instructions: ED Chest Pain NonCardiac Comments: Call your doctor to arrange a follow-up appointment, make the next available appointment. In the interim, return anytime if worse or if new symptoms develop.
--- NOTE | 2019-05-21 16:16 | XRAY Report ---
Reason: Chest pain Procedure Date: 05/21/2019 Accession Number: [id number] / [id number] Procedure: XR - Chest 1 View X-Ray CPT Code: 28881 Final Report FULL RESULT: EXAM: CHEST RADIOGRAPHY EXAM DATE: 05/21/2019 04:00 PM. CLINICAL HISTORY: Chest pain. COMPARISON: CHEST 2 VIEW 10/25/2017 11:13 AM. TECHNIQUE: 1 view. FINDINGS: Lungs/Pleura: No focal opacities evident. No pleural effusion. No pneumothorax. Mediastinum: Within exam limitations, the cardiomediastinal contour is normal. Other: None. IMPRESSION: No lung consolidations or pulmonary edema identified. RADIA
[2019-05-21 16:28] LABS: BASOPHILS # (AUTO) 0.1 10^3/uL (0.0-0.1); EOSINOPHILS # (AUTO) 0.1 10^3/uL (0.0-0.7); HGB - HEMOGLOBIN 14.2 g/dL (12.0-16.0); LYMPHOCYTES # (AUTO) 1.4 10^3/uL (1.5-3.5); LYMPHOCYTES % (AUTO) 28.2 %; MEAN CORPUSCULAR HEMOGLOBIN 28.7 pg (27.0-31.0); MEAN CORPUSCULAR HGB CONC 34.1 g/dL (32.0-36.0); MEAN CORPUSCULAR VOLUME 84.2 fL (81.0-99.0); MEAN PLATELET VOLUME 10.5 fL (7.9-10.8); MONOCYTES # (AUTO) 0.5 10^3/uL (0.0-1.0); MONOCYTES % (AUTO) 9.3 %; NEUTROPHILS % (AUTO) 60.3 %; PLT - PLATELET COUNT 221 10^3/uL (130-450); RED BLOOD COUNT 4.95 10^6/uL (4.20-5.40); RED CELL DISTRIBUTION WIDTH 12.6 % (12.0-15.0); WHITE BLOOD COUNT 4.9 x10^3/uL (4.8-10.8)
[2019-05-21 16:49] LABS: ALBUMIN 4.4 g/dL (3.2-5.5); ALBUMIN/GLOBULIN RATIO 1.4 (1.0-2.2); BILIRUBIN,TOTAL 1.3 mg/dL (0.2-1.0); CALCIUM 9.6 mg/dL (8.5-10.3); CREATININE 0.8 mg/dL (0.4-1.0); TOTAL PROTEIN 7.6 g/dL (6.7-8.2)
== END 2019-05-21 17:24 | disposition home or self-care (01) ==
LOC: ED 15:06
DX: R07.89 Other chest pain (principal)
CPT/HCPCS: 36415; 71045; 80053; 83690; 84484; 85025; 93005; 99284

== ENCOUNTER 2019-07-15 12:00 | Emergency (ER) | payer MEDICAID ==
[2019-07-15 12:42] LABS: BILIRUBIN,URINE NEGATIVE (NEGATIVE); GLUCOSE, URINE (UA) NEGATIVE (NEGATIVE); KETONES,URINE (UA) NEGATIVE (NEGATIVE); LEUKOCYTE ESTERASE, URINE SMALL (NEGATIVE); NITRITE,URINE NEGATIVE (NEGATIVE); OCCULT BLOOD,URINE NEGATIVE (NEGATIVE); PH,URINE 6.5 PH (5.0-7.5); PROTEIN,URINE NEGATIVE (NEGATIVE); UROBILINOGEN,URINE 0.2 (NORMAL) E.U./dL (NORMAL)
[2019-07-15 12:45] LABS: CLARITY,URINE HAZY (CLEAR); HCG UR QUAL NEGATIVE
[2019-07-15 12:53] LABS: BACTERIA,URINE Few /HPF (None Seen); RBC,URINE 0-5 /HPF (0-5); SQUAMOUS EPITHELIAL CELL,UR MOD Squamous (<= Few)
[2019-07-15 13:02] LABS: BASOPHILS # (AUTO) 0.1 10^3/uL (0.0-0.1); BASOPHILS % (AUTO) 0.4 %; EOSINOPHILS % (AUTO) 0.2 %; HGB - HEMOGLOBIN 13.1 g/dL (12.0-16.0); LYMPHOCYTES # (AUTO) 2.2 10^3/uL (1.5-3.5); LYMPHOCYTES % (AUTO) 17.3 %; MEAN CORPUSCULAR HEMOGLOBIN 29.3 pg (27.0-31.0); MEAN CORPUSCULAR VOLUME 86.1 fL (81.0-99.0); MEAN PLATELET VOLUME 10.2 fL (7.9-10.8); MONOCYTES # (AUTO) 0.9 10^3/uL (0.0-1.0); MONOCYTES % (AUTO) 7.1 %; NEUTROPHILS # (AUTO) 9.3 10^3/uL (1.5-6.6); NEUTROPHILS % (AUTO) 74.5 %; PLT - PLATELET COUNT 222 10^3/uL (130-450); RED BLOOD COUNT 4.47 10^6/uL (4.20-5.40); RED CELL DISTRIBUTION WIDTH 12.6 % (12.0-15.0); WHITE BLOOD COUNT 12.5 x10^3/uL (4.8-10.8)
[2019-07-15 13:14] LABS: ALBUMIN/GLOBULIN RATIO 1.3 (1.0-2.2); BILIRUBIN,TOTAL 0.5 mg/dL (0.2-1.0); CALCIUM 8.7 mg/dL (8.5-10.3); CREATININE 0.7 mg/dL (0.4-1.0)
--- NOTE | 2019-07-15 14:47 | ED Physician Documentation ---
PD HPI ABD PAIN - Stated complaint Stated Complaint: L SIDE PX - Chief complaint Chief Complaint: Abd Pain - History obtained from History obtained from: Patient - History of Present Illness Timing - onset: How many hours ago (9), Today (about 3 am, onset left abd pain, then lessened, and again more pain at 5 am and has persisted, with some worsening an hour or two ago.) Timing - duration: Hours Timing - details: Abrupt onset, Still present Quality: Aching, Sharp, Pain Location: LLQ Radiation: Left flank. No: Chest Improved by: Laying still. No: Position Worsened by: Moving, Position. No: Eating Associated symptoms: Nausea. 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: None : None HEENT: Chronic vision loss Psych: Anxiety, Claustrophobia Musculoskeletal: None Derm: None - Past Surgical History Past Surgical History: Yes /DOCTOR OF VETERINARY MEDICINE: Tubal ligation Cardiovascular: Other - Present Medications Home Medications: Ambulatory Orders Medication Instructions Recorded Confirmed Diclofenac Sodium 50 mg PO TID PRN 11/15/18 11/20/18 Azithromycin [Zithromax] 250 mg PO DAILY #6 tablet 07/13/19 Hydrocodone/Acetaminophen [[place] 1 each PO TID PRN #12 tablet 07/15/19 5-325 Tablet] Naproxen 375 mg PO BID #20 tablet 07/15/19 - Allergies Allergies/Adverse Reactions: Allergies Allergy/AdvReac Type Severity Reaction Status Date / Time cephalexin Allergy Rash Verified 07/15/19 12:04 - Social History Does the pt smoke?: No Smoking Status: Never smoker Does the pt drink ETOH?: No Does the pt have substance abuse?: No - Immunizations Immunizations are current?: No Immunizations: TDAP >10years/unknown, Other immun current - POLST Patient has POLST: No PD ED PE NORMAL - Vitals Vital signs reviewed: Yes - General General: Alert and oriented X 3, No acute distress, Well developed/nourished - Cardiac Cardiac: RRR, No murmur - Respiratory Respiratory: Clear bilaterally - Abdomen Abdomen: Normal bowel sounds, Soft, Non distended, No organomegaly, Other (tender LLQ with left mid abd. No rash nor sores. No percussion nor rebound tenderness. ) - Derm Derm: Normal color, Warm and dry - Extremities Extremities: No tenderness to palpate, Normal ROM s pain - Neuro Neuro: Alert and oriented X 3, millstone cleaner 2-12 intact, No motor deficit, No sensory deficit Results - Vitals Vitals: Vital Signs - 24 hr 07/15/19 07/15/19 07/15/19 12:04 15:52 18:10 Temperature 36.3 C L 36.1 C L 36 C L Heart Rate 72 83 80 Respiratory 20 12 16 Rate Blood Pressure 120/85 H 113/75 118/78 O2 Saturation 99 98 98 Oxygen O2 Source Room air - Labs Labs: Laboratory Tests 07/15/19 07/15/19 07/15/19 12:24 12:55 12:55 WBC 12.5 H RBC 4.47 Hgb 13.1 Hct 38.5 MCV 86.1 MCH 29.3 MCHC 34.0 RDW 12.6 Plt Count 222 MPV 10.2 Neut # (Auto) 9.3 H Lymph # (Auto) 2.2 [place] # (Auto) 0.9 Eos # (Auto) 0.0 Baso # (Auto) 0.1 Absolute Nucleated RBC 0.00 Nucleated RBC % 0.0 Sodium 135 Potassium 3.3 L Chloride 103 Carbon Dioxide 24 Anion Gap 8.0 BUN 13 Creatinine 0.7 Estimated GFR (MDRD) 94 Glucose 105 H Calcium 8.7 Total Bilirubin 0.5 AST 22 ALT 19 Alkaline Phosphatase 38 L Total Protein 7.0 Albumin 4.0 Globulin 3.0 Albumin/Globulin Ratio 1.3 Lipase 27 Urine Color YELLOW Urine Clarity HAZY Urine pH 6.5 Ur Specific [place] 1.015 Urine Protein NEGATIVE Urine Glucose (UA) NEGATIVE Urine Ketones NEGATIVE Urine Occult Blood NEGATIVE Urine Nitrite NEGATIVE Urine Bilirubin NEGATIVE Urine Urobilinogen 0.2 (NORMAL) Ur Leukocyte Esterase SMALL H Urine RBC 0-5 Urine WBC 6-10 H Ur Squamous Epith Cells MOD Squamous H Urine Bacteria Few Ur Microscopic Review INDICATED Urine Culture Comments NOT INDICATED Urine HCG, Qual NEGATIVE - Rads (name of study) abd/pelvic CT Radiology: Prelim report reviewed (no acute process; nonobstructing stone 2 mm in right kidney. ), See rad report PD MEDICAL DECISION MAKING - ED course Complexity details: reviewed results, re-evaluated patient (feeling improved with IV fluids and meds. ), considered differential (seems likely to be urinary: UTI or kidney stne. Can check for divertiulitis. Other abd processes. ), d/w patient Departure - Departure Disposition: 01 Home, Self Care Clinical Impression: Left sided abdominal pain Condition: Stable Record reviewed to determine appropriate education?: Yes Instructions: ED Abdominal Pain Unkn Cause Prescriptions: Hydrocodone/Acetaminophen [[place] 5-325 Tablet] 1 each PO TID PRN #12 tablet PRN Reason: Pain Naproxen 375 mg PO BID #20 tablet Comments: No obvious cause of the pain on your urine blood tests or CT scan. It may be intestinal or muscular or some other cause. At this point I would suggest trying anti-inflammatory of naproxen twice daily. Stay well-hydrated. Add Tylenol or hydrocodone if needed for pains. I would anticipate this improving over the next day or 2. [facility] and [facility]he[facility] if not improved [facility] if [facility] have increasing pain, fevers, generalized pain or other new symptoms. Discharge Date/Time: 07/15/19 17:45
[2019-07-15] MEDS ORDERED: ONDANSETRON 4 MG/2 ML VIAL IVP STA (15:02)
[2019-07-15] MEDS ORDERED: KETOROLAC 30 MG/ML VIAL IVP STA (15:02)
[2019-07-15] MEDS ORDERED: HYDROmorphone 1 MG/ML SYRINGE IVP STA ×2 (15:02→17:05)
[2019-07-15] MEDS ORDERED: SODIUM CHLORIDE 0.9% 1,000 ML IV ONE (15:02)
--- NOTE | 2019-07-15 15:57 | CT Report ---
Reason: left abd/left flank pain abrupt today Procedure Date: 07/15/2019 Accession Number: [id number] / [id number] Procedure: CT - Abdomen/Pelvis WO CPT Code: Final Report FULL RESULT: EXAM: CT ABDOMEN AND PELVIS (CT KUB) EXAM DATE: 07/15/2019 03:42 PM. CLINICAL HISTORY: Left abd/left flank pain abrupt today. COMPARISONS: None. TECHNIQUE: Routine axial helical CT imaging was performed through the abdomen and pelvis without IV contrast. Reconstructions: Coronal and sagittal. In accordance with CT protocol optimization, one or more of the following dose reduction techniques were utilized for this exam: automated exposure control, adjustment of mA and/or KV based on patient size, or use of iterative reconstructive technique. FINDINGS: Lung Bases: Unremarkable. Right Kidney/Ureter: No stones, hydronephrosis, or hydroureter. No perinephric fat stranding. Left Kidney/Ureter: Nonobstructing 2 mm stone in the left kidney. No hydronephrosis or hydroureter. Other Solid Organs: Noncontrast images of the solid organs are grossly unremarkable. Gallbladder/Bile Ducts: Unremarkable. Peritoneal Cavity: No free fluid, free air or norris adenopathy. Bowel is grossly unremarkable. Pelvic Organs: No bladder stones or wall thickening. Noncontrast images of the visualized pelvic organs are unremarkable. Vasculature: Unremarkable. Other: None. IMPRESSION: Nonobstructing 2 mm stone in the left kidney with no hydronephrosis or hydroureter. No stones in the bladder. RADIA
[2019-07-15 18:11] VITALS: BP 118/78
== END 2019-07-15 17:45 | disposition home or self-care (01) ==
LOC: ED 12:00
DX: R10.32 Left lower quadrant pain (principal); N20.0 Calculus of kidney
CPT/HCPCS: 36415; 74176; 80053; 81001; 81025; 83690; 85025; 96374; 96375; 96376; 99284; J1170; 81003; 87086

== ENCOUNTER 2019-08-08 20:30 | Emergency (ER) | payer MEDICAID ==
[2019-08-08 20:46] VITALS: BP 111/85
[2019-08-08] MEDS ORDERED: predniSONE 20 MG TABLET PO STA (20:52)
[2019-08-08] MEDS ORDERED: ALBUTEROL NEB 2.5 MG/3 ML INH STA (20:52)
[2019-08-08] MEDS ORDERED: guaiFENesin/CODEINE 5 ML UDC PO STA (20:53)
--- NOTE | 2019-08-08 20:58 | ED Physician Documentation ---
History of Present Illness - Stated complaint Stated Complaint: SOA - Chief complaint Chief Complaint: Resp - History obtained from History obtained from: Patient - History of Present Illness Timing: Yesterday (39-year-old history of mild asthma she had to run briefly yesterday and since then has been wheezing and short of breath. She has a cough which is minimally productive. No fevers. 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 : None HEENT: Chronic vision loss Psych: Anxiety, Claustrophobia Musculoskeletal: None Derm: None - Past Surgical History Past Surgical History: Yes /BIOFUELS PROCESSING TECHNICIAN: Tubal ligation Cardiovascular: Other - Present Medications Home Medications: Ambulatory Orders Medication Instructions Recorded Confirmed Diclofenac Sodium 50 mg PO TID PRN 11/15/18 11/20/18 Azithromycin [Zithromax] 250 mg PO DAILY #6 tablet 07/13/19 Hydrocodone/Acetaminophen [[place] 1 each PO TID PRN #12 tablet 07/15/19 5-325 Tablet] Naproxen 375 mg PO BID #20 tablet 07/15/19 Albuterol Sulf [Ventolin Hfa 1 - 2 puffs INH Q4HR PRN #1 inhaler 08/08/19 Inhaler] guaiFENesin/CODEINE [Robitussin AC] 5 - 10 ml PO Q6H PRN #120 ml 08/08/19 predniSONE [Deltasone] 60 mg PO DAILY 5 Days #15 tablet 08/08/19 - Allergies Allergies/Adverse Reactions: Allergies Allergy/AdvReac Type Severity Reaction Status Date / Time cephalexin Allergy Rash Verified 08/08/19 20:40 - Social History Does the pt smoke?: No Smoking Status: Never smoker Does the pt drink ETOH?: No Does the pt have substance abuse?: No - Immunizations Immunizations are current?: No Immunizations: TDAP >10years/unknown, Other immun current - POLST Patient has POLST: No PD ED PE NORMAL - Vitals Vital signs reviewed: Yes - General General: Alert and oriented X 3, Other (Frequent bronchitic coughing) - Cardiac Cardiac: RRR, No murmur - Respiratory Respiratory: No respiratory distress, Other (Mild expiratory wheezes with excellent air motion and frequent coughing. No focal findings.) - Abdomen Abdomen: Non tender - Derm Derm: No rash - Neuro Neuro: Alert and oriented X 3, Normal speech Results - Vitals Vitals: Vital Signs - 24 hr 08/08/19 08/08/19 20:38 20:45 Temperature 36.9 C Heart Rate 103 H 97 Respiratory 24 20 Rate Blood Pressure 111/85 H O2 Saturation 99 99 Oxygen O2 Source Room air PD MEDICAL DECISION MAKING - ED course ED course: 39-year-old woman with a exacerbation of asthma after exercising. No evidence of a contagious illness. Coronavirus is considered but lack of fever and myalgias make it very unlikely. She was treated here with albuterol neb, prednisone and Robitussin. Nothing in the history or physical to suggest pneumonia. Departure - Departure Disposition: 01 Home, Self Care Clinical Impression: Viral URI with cough Condition: Good Record reviewed to determine appropriate education?: Yes Instructions: ED Bronchitis Asthmatic Prescriptions: Albuterol Sulf [Ventolin Hfa Inhaler] 1 - 2 puffs INH Q4HR PRN #1 inhaler PRN Reason: Shortness Of Air/Wheezing guaiFENesin/CODEINE [Robitussin AC] 5 - 10 ml PO Q6H PRN #120 ml PRN Reason: Cough predniSONE [Deltasone] 60 mg PO DAILY 5 Days #15 tablet Comments: Return if worse or if you develop a fever or other new concerning symptoms. Follow-up with your doctor at the end of the week if not better.
== END 2019-08-08 21:19 | disposition home or self-care (01) ==
LOC: ED 20:30
DX: J06.9 Acute upper respiratory infection, unspecified (principal)
CPT/HCPCS: 94640; 94664; 99283; A9270; J7512

== ENCOUNTER 2019-08-13 10:56 | Emergency (ER) | payer MEDICAID ==
[2019-08-13] MEDS ORDERED: LIDOCAINE 1%-EPI 1:100000 20 ML MDV SUBQ STA (11:14)
--- NOTE | 2019-08-13 11:17 | ED Physician Documentation ---
PD HPI SKIN - Stated complaint Stated Complaint: DOG BITE - Chief complaint Chief Complaint: Laceration - History obtained from History obtained from: Patient (Pt is otherwise healthy 39 yo F who was bit on the left forearm by her dog today. Dog can be a little "hyper" at times and was nipping at a friend's kid so pt stepped in and tried to swat the dog back w/ her forearm and dog bit her. Hasn't bit her before. Dog uptodate on shots. 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 : None HEENT: Chronic vision loss Psych: Anxiety, Claustrophobia Musculoskeletal: None Derm: None - Past Surgical History Past Surgical History: Yes /SPOT WELDER: Tubal ligation Cardiovascular: Other - Present Medications Home Medications: Ambulatory Orders Medication Instructions Recorded Confirmed No Known Home Medications 08/13/19 08/13/19 - Allergies Allergies/Adverse Reactions: Allergies Allergy/AdvReac Type Severity Reaction Status Date / Time cephalexin Allergy Rash Verified 08/13/19 11:05 - Social History Does the pt smoke?: No Smoking Status: Never smoker Does the pt drink ETOH?: No Does the pt have substance abuse?: No - Immunizations Immunizations are current?: No Immunizations: TDAP >10years/unknown, Other immun current - POLST Patient has POLST: No PD ED PE NORMAL - Vitals Vital signs reviewed: Yes - General General: Alert and oriented X 3, No acute distress, Well developed/nourished - HEENT HEENT: Atraumatic - Cardiac Cardiac: RRR, No murmur, No gallop, No rub, Strong equal pulses - Respiratory Respiratory: No respiratory distress, Clear bilaterally - Abdomen Abdomen: Normal bowel sounds, Soft, Non tender, Non distended - Derm Derm: Normal color, Warm and dry, Other (7x2cm curvilinear laceration on the left forearm. Clean wound and edges can be approximated. There is a small puncture distal to this, superficial and <1/2cm in diameter. There is a 1.5cm laceration/puncture on the back of the forearm. There is a superficial puncture and contusion proximal to the laceration near the left antecubital space) - Extremities Extremities: No deformity, Normal ROM s pain, No edema, Other (normal hand/wrist ROM and sensation. 2+ radial pulses) Results - Vitals Vitals: Vital Signs - 24 hr 08/13/19 11:02 Temperature 36.8 C Heart Rate 92 Respiratory 18 Rate Blood Pressure 141/91 H O2 Saturation 98 Oxygen O2 Source Room air Procedures - Laceration (location) left forearm Wound type: Linear, Curved, Into subcut fat Neurovascular status: Sensory intact, Motor intact, Vascular intact Tendon involvement: Tendon intact Anesthesia: Lidocaine 1% with epi Wound Preparation: Hibiclens, Irrigated copiously NS Deep layer closure: Vicryl, size #-0 - enter number (4), # sutures - enter number (3) Skin layer closure: Nylon, Running, Size #-0 - enter number (4), Sutures - enter # (9 + 3) PD MEDICAL DECISION MAKING - ED course Complexity details: re-evaluated patient, d/w patient ED course: 39 yo F who was bit in the left forearm by her dog. Dog is utd w/ vaccines, pt reports utd w/ td. The wound was irrigated copiously and closed w/ sutures after informed verbal consent. Pt tolerated well. Routine suture care and wound care instructions provided to pt. She should have them removed in 7-10 days. She should return if s/sx of infection which were disucssed w/ pt. Departure - Departure Disposition: 01 Home, Self Care Clinical Impression: Laceration Condition: Good Instructions: ED Laceration Repair Infec, ED Laceration Ext Sutr Stap Tape Comments: Follow up with a nurse or physician in 7-10 days for suture removal. If you have any signs of infection such as fever/chills, swelling and redness in the arm, purulent drainage, or otherwise worsening sx, return to the ER.
[2019-08-13 12:18] VITALS: BP 122/78
== END 2019-08-13 12:18 | disposition home or self-care (01) ==
LOC: ED 10:56
DX: S51.812A Laceration without foreign body of left forearm, initial encounter (principal); W54.0XXA Bitten by dog, initial encounter; Y93.89 Activity, other specified
CPT/HCPCS: 12031

== ENCOUNTER 2020-01-16 16:38 | Emergency (ER) | payer MEDICAID ==
--- NOTE | 2020-01-16 17:04 | ED Physician Documentation ---
History of Present Illness - Stated complaint Stated Complaint: RT ANKLE SWELLING/SOA - Chief complaint Chief Complaint: Ext Problem - History obtained from History obtained from: Patient - Additonal information Additional information: 39-year-old woman with history of asthma but no history of DVT or PE has been traveling a lot lately and last night developed without injury some swelling of the right ankle. She is also had about a week and a half worth of anterior chest pressure that is constant but worse when she lays flat. Review of Systems Ten Systems: 10 systems reviewed and negative Constitutional: reports: Reviewed and negative Cardiac: reports: Chest pain / pressure. denies: Palpitations Respiratory: reports: Dyspnea. 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 : None HEENT: Chronic vision loss Psych: Anxiety, Claustrophobia Musculoskeletal: None Derm: None - Past Surgical History Past Surgical History: Yes /BENCH INSPECTOR: Tubal ligation Cardiovascular: Other - Present Medications Home Medications: Ambulatory Orders Medication Instructions Recorded Confirmed No Known Home Medications 08/13/19 08/13/19 - Allergies Allergies/Adverse Reactions: Allergies Allergy/AdvReac Type Severity Reaction Status Date / Time cephalexin Allergy Rash Verified 08/13/19 11:05 - Social History Does the pt smoke?: No Smoking Status: Never smoker Does the pt drink ETOH?: No Does the pt have substance abuse?: No - Immunizations Immunizations are current?: No Immunizations: TDAP >10years/unknown, Other immun current - POLST Patient has POLST: No PD ED PE NORMAL - Vitals Vital signs reviewed: Yes - General General: Alert and oriented X 3, No acute distress - HEENT HEENT: PERRL, EOMI - Neck Neck: Supple, no meningeal sign, No bony TTP - Cardiac Cardiac: RRR, No murmur - Respiratory Respiratory: No respiratory distress, Clear bilaterally - Abdomen Abdomen: Non tender - Extremities Extremities: Other (Mild edema and swelling of the right ankle, fairly distal. There is mild calf tenderness. Negative Homans sign.) - Neuro Neuro: Alert and oriented X 3, Normal speech Results - Vitals Vitals: Vital Signs - 24 hr 01/16/20 01/16/20 16:53 18:54 Temperature 36.4 C L 36.8 C Heart Rate 76 87 Respiratory 14 18 Rate Blood Pressure 150/97 H 138/69 H O2 Saturation 99 96 Oxygen O2 Source Room air - EKG (time done) 1714 Rate: Rate (enter#) (69) Rhythm: NSR Orange: Normal Intervals: Normal [place] QRS: Normal Ischemia: Normal ST segments Computer interpretation: Agree with computer - Labs Labs: Laboratory Tests 01/16/20 01/16/20 01/16/20 17:05 17:20 17:20 WBC 6.3 RBC 4.76 Hgb 13.7 Hct 41.2 MCV 86.6 MCH 28.8 MCHC 33.3 RDW 12.2 Plt Count 200 MPV 10.0 Neut # (Auto) 3.3 Lymph # (Auto) 2.2 [place] # (Auto) 0.6 Eos # (Auto) 0.2 Baso # (Auto) 0.1 Absolute Nucleated RBC 0.00 Nucleated RBC % 0.0 D-Dimer 261.3 H Sodium 137 Potassium 3.5 Chloride 104 Carbon Dioxide 24 Anion Gap 9.0 BUN 11 Creatinine 0.7 Estimated GFR (MDRD) 94 Glucose 100 Calcium 9.3 Total Bilirubin 0.9 AST 27 ALT 32 Alkaline Phosphatase 46 Troponin I High Sens Total Protein 7.1 Albumin 4.5 Globulin 2.6 Albumin/Globulin Ratio 1.7 Lipase 21 L 01/16/20 17:20 WBC RBC Hgb Hct MCV MCH MCHC RDW Plt Count MPV Neut # (Auto) Lymph # (Auto) [place] # (Auto) Eos # (Auto) Baso # (Auto) Absolute Nucleated RBC Nucleated RBC % D-Dimer Sodium Potassium Chloride Carbon Dioxide Anion Gap BUN Creatinine Estimated GFR (MDRD) Glucose Calcium Total Bilirubin AST ALT Alkaline Phosphatase Troponin I High Sens < 2.3 L Total Protein Albumin Globulin Albumin/Globulin Ratio Lipase - Rads (name of study) DVT Sono RLE Radiology: EMP read contemporaneously (neg) 1v chest Radiology: EMP read contemporaneously (NAD) PD MEDICAL DECISION MAKING - ED course ED course: 39-year-old woman With some chest pain that is been ongoing, atypical and she is been seen for this before. Work-up negative and heart score 0. Also with some right ankle swelling, fairly distal for DVT and an ultrasound was negative. Departure - Departure Disposition: 01 Home, Self Care Clinical Impression: Atypical chest pain, Left leg swelling Condition: Good Record reviewed to determine appropriate education?: Yes Instructions: ED Chest Pain Atypical Unkn Cause Comments: No evidence of blood clot today or heart issue. Return for new or worsening symptoms and follow-up with your primary care physician, next available appointment.
[2020-01-16 17:25] LABS: BASOPHILS # (AUTO) 0.1 10^3/uL (0.0-0.1); BASOPHILS % (AUTO) 1.1 %; EOSINOPHILS # (AUTO) 0.2 10^3/uL (0.0-0.7); EOSINOPHILS % (AUTO) 2.4 %; HGB - HEMOGLOBIN 13.7 g/dL (12.0-16.0); LYMPHOCYTES # (AUTO) 2.2 10^3/uL (1.5-3.5); LYMPHOCYTES % (AUTO) 34.8 %; MEAN CORPUSCULAR HEMOGLOBIN 28.8 pg (27.0-31.0); MEAN CORPUSCULAR HGB CONC 33.3 g/dL (32.0-36.0); MEAN CORPUSCULAR VOLUME 86.6 fL (81.0-99.0); MONOCYTES # (AUTO) 0.6 10^3/uL (0.0-1.0); MONOCYTES % (AUTO) 9.8 %; NEUTROPHILS # (AUTO) 3.3 10^3/uL (1.5-6.6); NEUTROPHILS % (AUTO) 51.6 %; PLT - PLATELET COUNT 200 10^3/uL (130-450); RED BLOOD COUNT 4.76 10^6/uL (4.20-5.40); RED CELL DISTRIBUTION WIDTH 12.2 % (12.0-15.0); WHITE BLOOD COUNT 6.3 x10^3/uL (4.8-10.8)
[2020-01-16 17:37] LABS: ALBUMIN 4.5 g/dL (3.2-5.5); ALBUMIN/GLOBULIN RATIO 1.7 (1.0-2.2); BILIRUBIN,TOTAL 0.9 mg/dL (0.2-1.0); CALCIUM 9.3 mg/dL (8.5-10.3); CREATININE 0.7 mg/dL (0.4-1.0); TOTAL PROTEIN 7.1 g/dL (6.7-8.2)
--- NOTE | 2020-01-16 18:01 | XRAY Report ---
PROCEDURE: Chest 1 View X-Ray INDICATIONS: Chest Pain TECHNIQUE: One view of the chest was acquired. COMPARISON: 05/21/2019 FINDINGS: Surgical changes and devices: None. Lungs and pleura: No pleural effusions or pneumothorax. Lungs are clear. Mediastinum: Mediastinal contours appear normal. Heart size is normal. Bones and chest wall: No suspicious bony lesions. Overlying soft tissues appear unremarkable. IMPRESSION: No acute process. Reviewed by: Bianca Saucedo MD on 01/16/2020 5:59 PM PDT Approved by: Bianca Saucedo MD on 01/16/2020 5:59 PM PDT Station ID: [id number]
[2020-01-16 20:27] VITALS: BP 122/72
--- NOTE | 2020-01-16 20:34 | Ultrasound Report ---
PROCEDURE: Duplex Ext Veins Right INDICATIONS: RLE swelling TECHNIQUE: Real-time imaging, as well as color and pulse Doppler interrogation, were performed of the lower extr emity deep veins from the inguinal ligament to the popliteal fossa. COMPARISON: None. FINDINGS: The deep veins are normally compressible, and free of intraluminal thrombus. Color and pu lse Doppler demonstrate normal phasic intraluminal flow. There is normal augmentation response to di stal compression maneuver. IMPRESSION: No DVT in the right lower extremity. Reviewed by: Bianca Sauceod MD on 01/16/2020 8:33 PM PDT Approved by: Bianca Saucedo MD on 01/16/2020 8:33 PM PDT Station ID: [id number]
== END 2020-01-16 20:30 | disposition home or self-care (01) ==
LOC: ED 16:38
DX: R07.89 Other chest pain (principal); R22.42 Localized swelling, mass and lump, left lower limb
CPT/HCPCS: 36415; 71045; 80053; 83690; 84484; 85025; 85379; 93005; 99284

== ENCOUNTER 2021-02-16 07:00 | Outpatient (CLI) | payer MEDICAID | END 2021-02-16 23:59 | disposition home or self-care (01) | LOC: LAB 07:00 | PROVIDERS: ATTEND Physician Assistant Medical | DX: R07.0 Pain in throat (principal); Z20.822 Contact with and (suspected) exposure to COVID-19 ==